=== PATIENT | female | born 1965 | race African-American/Black ===

== ENCOUNTER 2024-03-16 13:13 | Inpatient (IN) | payer OTHER, SELFPAY ==
[2024-03-16 13:42] LABS: #Basophils 0.05 10x3/uL (0.0-0.2); %Basophils 0.6 % (0.0-1.0); %Eosinophils 3.1 % (0.0-10.0); %Monocytes 7.2 % (0.0-10.0); %Neutrophils 59.9 % (42.0-75.0); Hematocrit 41.1 % (36.0-47.0); Mean Corpuscular HGB CONC 31.6 g/dL (32.0-36.0); Mean Corpuscular Hemoglobin 25.6 pg (27.0-31.0); Mean Corpuscular Volume 81.1 fL (78.0-98.0); Mean Platelet Volume 12.9 fL (7.4-10.4); Platelet Count 230 10x3/uL (130-400); RBC Distribution Width 14.6 % (11.5-14.5); Red Blood Cell (RBC) Count 5.07 mill/uL (4.20-5.40)
[2024-03-16 13:56] LABS: Lipase 10 U/L (8-78); Magnesium 1.4 mg/dL (1.6-2.6)
[2024-03-16 13:57] LABS: Acetaminophen Less than 10 mcg/mL (Less than 10); Alcohol Less than 10.0 mg/dL (Less than 10); Salicylate Less than 8.0 mg/dL (Less than 8.0)
[2024-03-16 14:03] LABS: PTT 25.5 sec (22.9-36.1); Prothrombin Time 13.2 sec (12.0-14.7)
[2024-03-16 14:05] LABS: Troponin I 0.031 ng/mL (< 0.028)
[2024-03-16 14:08] LABS: ALT (SGPT) 7 U/L (8-55); AST (SGOT) 13 U/L (5-34); Albumin 3.6 g/dL (3.5-5.0); Alkaline Phosphatase 97 U/L (40-110); Anion Gap 19 mmol/L (10-20); BUN (Urea Nitrogen) 7 mg/dL (9.8-20.1); Bilirubin, Total 0.4 mg/dL (0.2-1.2); Calc. Creatinine Clearance 0 mL/min (70-130); Calcium 9.4 mg/dL (7.8-10.44); Carbon Dioxide 22 mmol/L (22-29); Chloride 103 mmol/L (98-107); Estimated GFR 49; Globulin 4.7 g/dL (2.4-3.5); Glucose 252 mg/dL (70-105); Potassium 3.6 mmol/L (3.5-5.1); Protein, Total 8.3 g/dL (6.0-8.3); Sodium 140 mmol/L (136-145)
[2024-03-16] MEDS ORDERED: Aspirin Chewable 81 MG TAB ONE (14:19)
[2024-03-16] MEDS ORDERED: niCARdipine 25 MG/10 ML SDV ONE (14:19)
[2024-03-16] MEDS ORDERED: traMADol HCl 50 MG TAB PO PRN (14:53)
[2024-03-16] MEDS ORDERED: Acetaminophen 325 MG TAB PO PRN (14:53)
[2024-03-16] MEDS ORDERED: Electrolyte Replacement Protocol 1 EACH FS SCH (14:58)
[2024-03-16] MEDS ORDERED: niCARdipine 25 MG in Sodium Chloride 0.9% 250 ML 250 ML IVPB SCH (15:00)
[2024-03-16 16:59] VITALS: BMI 35.6
[2024-03-16] MEDS: niCARdipine 25 MG in Sodium Chloride 0.9% 250 ML 250 ML IVPB SCH (17:03)
[2024-03-16] MEDS: Lisinopril 20 MG TAB PO SCH (17:22)
[2024-03-16] MEDS: Magnesium Sulfate In Water 4 GM in Premix 1 BAG IVPB SCH (18:15)
[2024-03-16 19:28] LABS: Hemoglobin A1c 8.9 % (4.0-6.0)
[2024-03-16 19:37] LABS: Troponin I 0.026 ng/mL (< 0.028)
[2024-03-16] MEDS: Famotidine 20 MG TAB PO SCH (20:38)
[2024-03-16 23:26] LABS: Troponin I 0.021 ng/mL (< 0.028)
[2024-03-17 05:42] LABS: #Basophils Less than 0.03 10x3/uL (0.0-0.2); %Basophils 0.3 % (0.0-1.0); %Eosinophils 2.8 % (0.0-10.0); %Lymphocytes 26.4 % (21.0-51.0); %Monocytes 7.3 % (0.0-10.0); %Neutrophils 62.9 % (42.0-75.0); Hematocrit 35.8 % (36.0-47.0); Hemoglobin 11.4 g/dL (12.0-16.0); Mean Corpuscular HGB CONC 31.8 g/dL (32.0-36.0); Mean Corpuscular Hemoglobin 25.4 pg (27.0-31.0); Mean Corpuscular Volume 79.9 fL (78.0-98.0); Mean Platelet Volume 13.5 fL (7.4-10.4); Platelet Count 205 10x3/uL (130-400); RBC Distribution Width 14.6 % (11.5-14.5); Red Blood Cell (RBC) Count 4.48 mill/uL (4.20-5.40)
[2024-03-17 05:57] LABS: Anion Gap 14 mmol/L (10-20); BUN (Urea Nitrogen) 10 mg/dL (9.8-20.1); Calc. Creatinine Clearance 73 mL/min (70-130); Calcium 8.8 mg/dL (7.8-10.44); Carbon Dioxide 25 mmol/L (22-29); Chloride 107 mmol/L (98-107); Estimated GFR 47; Glucose 222 mg/dL (70-105); Potassium 3.3 mmol/L (3.5-5.1); Sodium 143 mmol/L (136-145)
[2024-03-17] MEDS: Potassium Chloride 20 MEQ TAB PO SCH (07:55)
[2024-03-17] MEDS: Lisinopril 20 MG TAB PO SCH (07:55)
[2024-03-17] MEDS: Enoxaparin 40 MG (0.4 mL) SYRINGE SC SCH (07:55)
[2024-03-17] MEDS ORDERED: Electrolyte Replacement Protocol FS PRN (08:00)
[2024-03-17] MEDS ORDERED: Dextrose 50% Abboject 50 ML SYRINGE SLOW IVP PRN (08:42)
[2024-03-17] MEDS ORDERED: HumaLOG 300 UNITS/3 ML VIAL SC PRN (08:42)
[2024-03-17] MEDS ORDERED: Dextrose 5% in Water 1,000 ML IV PRN (08:42)
[2024-03-17] MEDS ORDERED: Glucagon 1 MG/ML KIT IM PRN (08:42)
[2024-03-17] MEDS: Amlodipine 10 MG TAB PO SCH (11:28)
[2024-03-17] MEDS: Divalproex Sodium 250 MG (DR) TAB PO SCH (11:28)
[2024-03-17] MEDS: Insulin Lispro 100 UNIT/ML 10 ML VIAL SC PRN (13:16)
[2024-03-17] MEDS: Aspirin 81 mg Enteric Coated Tablet PO SCH (14:38)
[2024-03-17] MEDS: Carvedilol 25 MG TAB PO SCH (15:26)
[2024-03-17] MEDS: Chlorthalidone 25 MG TAB PO SCH (15:26)
[2024-03-17] MEDS: Atorvastatin Calcium 40 MG TAB PO SCH (20:48)
[2024-03-18 05:23] LABS: Hematocrit 36.5 % (36.0-47.0); Hemoglobin 11.2 g/dL (12.0-16.0); Mean Corpuscular HGB CONC 30.7 g/dL (32.0-36.0); Mean Corpuscular Hemoglobin 24.9 pg (27.0-31.0); Mean Corpuscular Volume 81.3 fL (78.0-98.0); Mean Platelet Volume 12.7 fL (7.4-10.4); Platelet Count 200 10x3/uL (130-400); Red Blood Cell (RBC) Count 4.49 mill/uL (4.20-5.40)
[2024-03-18 05:50] LABS: Anion Gap 14 mmol/L (10-20); BUN (Urea Nitrogen) 10 mg/dL (9.8-20.1); Calc. Creatinine Clearance 78 mL/min (70-130); Calcium 8.9 mg/dL (7.8-10.44); Carbon Dioxide 23 mmol/L (22-29); Cardiac Risk 3.9 (Less than 4.5); Chloride 110 mmol/L (98-107); Cholesterol 175 mg/dl (< 200 Desired); Estimated GFR 50; Glucose 176 mg/dL (70-105); HDL Cholesterol 45 mg/dL (>60 Neg Risk); LDL Cholesterol, Calculated 108 mg/dL; Potassium 3.8 mmol/L (3.5-5.1); Sodium 143 mmol/L (136-145); Triglycerides 109 mg/dL (Less than 150)
[2024-03-18] MEDS: Amlodipine 10 MG TAB PO SCH (07:20)
[2024-03-18] MEDS: Divalproex Sodium 250 MG (DR) TAB PO SCH (07:23)
[2024-03-18] MEDS: Aspirin 81 mg Enteric Coated Tablet PO SCH (07:24)
[2024-03-18] MEDS: Carvedilol 25 MG TAB PO SCH (07:24)
[2024-03-18] MEDS: Chlorthalidone 25 MG TAB PO SCH (07:25)
[2024-03-19 03:44] LABS: Hematocrit 37.3 % (36.0-47.0); Hemoglobin 11.8 g/dL (12.0-16.0); Mean Corpuscular HGB CONC 31.6 g/dL (32.0-36.0); Mean Corpuscular Hemoglobin 25.5 pg (27.0-31.0); Mean Corpuscular Volume 80.6 fL (78.0-98.0); Mean Platelet Volume 12.9 fL (7.4-10.4); Platelet Count 225 10x3/uL (130-400); RBC Distribution Width 14.7 % (11.5-14.5); Red Blood Cell (RBC) Count 4.63 mill/uL (4.20-5.40)
[2024-03-19 04:18] LABS: Anion Gap 16 mmol/L (10-20); BUN (Urea Nitrogen) 17 mg/dL (9.8-20.1); Calc. Creatinine Clearance 74 mL/min (70-130); Calcium 9.6 mg/dL (7.8-10.44); Carbon Dioxide 26 mmol/L (22-29); Chloride 106 mmol/L (98-107); Estimated GFR 47; Glucose 178 mg/dL (70-105); Magnesium 1.8 mg/dL (1.6-2.6); Potassium 3.9 mmol/L (3.5-5.1); Sodium 144 mmol/L (136-145)
[2024-03-19] MEDS ORDERED: hydrALAZINE 10 MG TAB PO PRN (17:19)
[2024-03-20] MEDS ORDERED: PROPOFOL 20 ML ONE ×2 (07:24)
[2024-03-21] MEDS ORDERED: Lidocaine 1% w/Epinephrine 1:100K 20 ML VIAL ONE (08:51)
[2024-03-21 13:25] VITALS: BP 135/85; TEMP 98.2
== END 2024-03-21 13:50 | disposition home or self-care (01) | DRG 41 ==
LOC: ERS 13:13 → CCU 14:35 → 2SE 03-18 13:12
PROVIDERS: ADMIT Internal Medicine; ATTEND Internal Medicine
PROC: B24BZZ4 Ultrasonography of Heart with Aorta, Transesophageal (ICD-10-PCS; 2024-03-20)
PROC: 0JH602Z Insertion of Monitoring Device into Chest Subcutaneous Tissue and Fascia, Open Approach (ICD-10-PCS; principal; 2024-03-21)
DX: I63.9 Cerebral infarction, unspecified (principal); I16.1 Hypertensive emergency; N17.9 Acute kidney failure, unspecified; F41.9 Anxiety disorder, unspecified; F31.9 Bipolar disorder, unspecified; E83.42 Hypomagnesemia; R20.2 Paresthesia of skin; E78.00 Pure hypercholesterolemia, unspecified; E03.9 Hypothyroidism, unspecified; G89.29 Other chronic pain; M54.9 Dorsalgia, unspecified; E11.65 Type 2 diabetes mellitus with hyperglycemia; E87.6 Hypokalemia; I12.9 Hypertensive chronic kidney disease with stage 1 through stage 4 chronic kidney disease, or unspecified chronic kidney disease; N18.30 Chronic kidney disease, stage 3 unspecified; E11.22 Type 2 diabetes mellitus with diabetic chronic kidney disease; Z98.51 Tubal ligation status; Z91.041 Radiographic dye allergy status; Z91.148 Patient's other noncompliance with medication regimen for other reason
CPT/HCPCS: 33285; 36415; 36416; 70450; 70551; 71045; 80048; 80053; 80061; 80307; 83036; 83690; 83735; 83880; 84443; 84484; 85025; 85027; 85610; 85730; 93005; 93010; 93306; 93312; 93880; 96374; C1764; J1650; J1815; J2704; J3475; J7050

== ENCOUNTER 2024-06-22 16:12 | Emergency (ER) | payer OTHER ==
[2024-06-22 16:57] LABS: #Basophils 0.03 10x3/uL (0.0-0.2); %Basophils 0.4 % (0.0-1.0); %Eosinophils 2.2 % (0.0-10.0); %Lymphocytes 29.9 % (21.0-51.0); %Monocytes 6.5 % (0.0-10.0); %Neutrophils 60.6 % (42.0-75.0); Hemoglobin 11.6 g/dL (12.0-16.0); Mean Corpuscular HGB CONC 31.4 g/dL (32.0-36.0); Mean Corpuscular Volume 79.7 fL (78.0-98.0); Platelet Count 229 10x3/uL (130-400); RBC Distribution Width 14.8 % (11.5-14.5); Red Blood Cell (RBC) Count 4.64 mill/uL (4.20-5.40)
[2024-06-22 17:23] LABS: ALT (SGPT) 9 U/L (Less than 34); AST (SGOT) 19 U/L (11-34); Albumin 3.4 g/dL (3.1-4.5); Alkaline Phosphatase 108 U/L (40-110); Anion Gap 14 mmol/L (10-20); BUN (Urea Nitrogen) 12 mg/dL (9.8-20.1); Bilirubin, Total 0.3 mg/dL (0.3-1.2); Calc. Creatinine Clearance 0 mL/min (70-130); Calcium 9.3 mg/dL (7.8-10.44); Carbon Dioxide 25 mmol/L (22-29); Chloride 105 mmol/L (98-107); Estimated GFR 51; Globulin 4.7 g/dL (2.4-3.5); Glucose 161 mg/dL (70-105); Potassium 3.4 mmol/L (3.5-5.1); Protein, Total 8.1 g/dL (6.0-8.3); Sodium 141 mmol/L (136-145)
[2024-06-22] MEDS ORDERED: Nitroglycerin 2% Ointment 1 INCH/1 GM Packet ONE (17:23)
[2024-06-22 17:27] LABS: Troponin I 0.025 ng/mL (< 0.028)
== END 2024-06-22 19:35 | disposition home or self-care (01) ==
LOC: ERS 16:12
DX: R20.2 Paresthesia of skin (principal); I10 Essential (primary) hypertension; R07.9 Chest pain, unspecified; E11.9 Type 2 diabetes mellitus without complications; Z79.84 Long term (current) use of oral hypoglycemic drugs; Z86.73 Personal history of transient ischemic attack (TIA), and cerebral infarction without residual deficits; Z79.899 Other long term (current) drug therapy
CPT/HCPCS: 70450; 71045; 80053; 83880; 84484; 85025; 93005; 93010

== ENCOUNTER 2024-12-12 13:18 | Inpatient (IN) | payer OTHER ==
[2024-12-12] MEDS ORDERED: cloNIDine 0.1 MG TAB ONE (15:34)
[2024-12-12 15:44] LABS: #Basophils Less than 0.03 10x3/uL (0.0-0.2); #Eosinophils 0.12 10x3/uL (0.0-0.7); #Monocytes 0.54 10x3/uL (0.11-0.59); #Neutrophils 3.65 10x3/uL (1.40-6.50); %Basophils 0.3 % (0.0-1.0); %Eosinophils 1.8 % (0.0-10.0); %Lymphocytes 36.5 % (21.0-51.0); %Monocytes 7.9 % (0.0-10.0); %Neutrophils 53.4 % (42.0-75.0); Hematocrit 38.2 % (36.0-47.0); Hemoglobin 11.8 g/dL (12.0-16.0); Mean Corpuscular Hemoglobin 24.8 pg (27.0-31.0); Mean Corpuscular Volume 80.4 fL (78.0-98.0); Platelet Count 187 10x3/uL (130-400); Red Blood Cell (RBC) Count 4.75 mill/uL (4.20-5.40); White Blood Cell (WBC) Count 6.83 10x3/uL (4.8-10.8)
[2024-12-12 15:48] LABS: ALT (SGPT) Less than 7 U/L (Less than 34); AST (SGOT) 11 U/L (11-34); Albumin 3.8 g/dL (3.1-4.5); Alkaline Phosphatase 110 U/L (40-110); Anion Gap 16 mmol/L (10-20); BUN (Urea Nitrogen) 9 mg/dL (9.8-20.1); Bilirubin, Total 0.4 mg/dL (0.3-1.2); Calc. Creatinine Clearance 0 mL/min (70-130); Calcium 8.9 mg/dL (7.8-10.44); Carbon Dioxide 22 mmol/L (23-31); Chloride 108 mmol/L (98-107); Globulin 4.5 g/dL (2.4-3.5); Glucose 140 mg/dL (80-115); Potassium 3.1 mmol/L (3.5-5.1); Sodium 143 mmol/L (136-145)
[2024-12-12] MEDS ORDERED: Droperidol 5 MG/2 ML VIAL ONE (16:23)
[2024-12-12] MEDS ORDERED: hydrALAZINE 20 MG/ML VIAL ONE (16:23)
[2024-12-12] MEDS ORDERED: Dextrose 50% Abboject 50 ML SYRINGE SLOW IVP PRN (18:14)
[2024-12-12] MEDS ORDERED: Melatonin 3 MG TAB PO PRN (18:14)
[2024-12-12] MEDS ORDERED: Acetaminophen 325 MG TAB PO PRN (18:14)
[2024-12-12] MEDS ORDERED: Nitroglycerin 0.4 MG TAB (25 Tab Bottle) SL PRN (18:14)
[2024-12-12] MEDS ORDERED: Glucagon 1 MG/ML KIT IM PRN (18:14)
[2024-12-12] MEDS ORDERED: Ondansetron PF 4 MG/2 ML Vial IVP PRN (18:14)
[2024-12-12] MEDS ORDERED: hydrALAZINE 20 MG/ML VIAL SLOW IVP PRN (18:39)
[2024-12-12] MEDS: Carvedilol 25 MG TAB PO SCH (20:54)
[2024-12-12] MEDS: Famotidine/PF 20 mg/2ml Vial SLOW IVP SCH (20:55)
[2024-12-13 03:23] LABS: #Basophils 0.04 10x3/uL (0.0-0.2); #Eosinophils 0.13 10x3/uL (0.0-0.7); #Monocytes 0.57 10x3/uL (0.11-0.59); #Neutrophils 4.40 10x3/uL (1.40-6.50); %Basophils 0.5 % (0.0-1.0); %Eosinophils 1.8 % (0.0-10.0); %Lymphocytes 29.8 % (21.0-51.0); %Monocytes 7.8 % (0.0-10.0); %Neutrophils 60.0 % (42.0-75.0); Hematocrit 34.4 % (36.0-47.0); Hemoglobin 10.6 g/dL (12.0-16.0); Mean Corpuscular Hemoglobin 24.8 pg (27.0-31.0); Mean Corpuscular Volume 80.4 fL (78.0-98.0); Platelet Count 176 10x3/uL (130-400); Red Blood Cell (RBC) Count 4.28 mill/uL (4.20-5.40); White Blood Cell (WBC) Count 7.34 10x3/uL (4.8-10.8)
[2024-12-13 03:57] LABS: Anion Gap 14 mmol/L (10-20); BUN (Urea Nitrogen) 11 mg/dL (9.8-20.1); Calc. Creatinine Clearance 0 mL/min (70-130); Calcium 8.7 mg/dL (7.8-10.44); Carbon Dioxide 23 mmol/L (23-31); Chloride 110 mmol/L (98-107); Glucose 171 mg/dL (80-115); Potassium 3.3 mmol/L (3.5-5.1); Sodium 144 mmol/L (136-145)
[2024-12-13 07:06] VITALS: BMI 34.7
[2024-12-13] MEDS: Lisinopril 20 MG TAB PO SCH (10:03)
[2024-12-13] MEDS: Enoxaparin 40 MG (0.4 mL) SYRINGE SC SCH (10:03)
[2024-12-13] MEDS: Divalproex Sodium 250 MG DR.TAB PO SCH (10:03)
[2024-12-13] MEDS: Aspirin Chewable 81 MG TAB PO SCH (10:03)
[2024-12-13] MEDS: Spironolactone 25 MG TAB PO SCH (10:04)
[2024-12-13] MEDS: Chlorthalidone 25 MG TAB PO SCH (10:04)
[2024-12-13 12:27] VITALS: BP 155/86; TEMP 97.8
[2024-12-13] MEDS: metFORMIN 500 MG TAB PO SCH (12:53)
== END 2024-12-13 16:59 | disposition home or self-care (01) | DRG 305 ==
LOC: ERS 13:18 → OBS 17:32 → OBSVTOIN 17:33
PROVIDERS: ADMIT Internal Medicine; ATTEND Internal Medicine
DX: I16.0 Hypertensive urgency (principal); E03.9 Hypothyroidism, unspecified; N18.30 Chronic kidney disease, stage 3 unspecified; I12.9 Hypertensive chronic kidney disease with stage 1 through stage 4 chronic kidney disease, or unspecified chronic kidney disease; E11.22 Type 2 diabetes mellitus with diabetic chronic kidney disease; F32.A Depression, unspecified; E78.00 Pure hypercholesterolemia, unspecified; F41.9 Anxiety disorder, unspecified; Z95.0 Presence of cardiac pacemaker; Z86.73 Personal history of transient ischemic attack (TIA), and cerebral infarction without residual deficits; Z82.49 Family history of ischemic heart disease and other diseases of the circulatory system; Z83.3 Family history of diabetes mellitus; Z91.09 Other allergy status, other than to drugs and biological substances
CPT/HCPCS: 36415; 36416; 71045; 78452; 80048; 80053; 83880; 84484; 85025; 93005; 93017; 94760; 96374; 96375; A9502; J0360; J1308; J1650; J1790; J2785

== ENCOUNTER 2025-03-07 09:07 | Emergency (ER) | payer OTHER ==
[2025-03-07] MEDS ORDERED: hydrALAZINE 20 MG/ML VIAL ONE (09:31)
[2025-03-07] MEDS ORDERED: Ketorolac Tromethamine 30 MG (1 mL) VIAL ONE (09:32)
[2025-03-07 09:58] LABS: ALT (SGPT) Less than 7 U/L (Less than 34); AST (SGOT) 21 U/L (11-34); Albumin 3.4 g/dL (3.1-4.5); Alkaline Phosphatase 121 U/L (40-110); Anion Gap 19 mmol/L (10-20); BUN (Urea Nitrogen) 11 mg/dL (9.8-20.1); Bilirubin, Total 0.4 mg/dL (0.3-1.2); Calc. Creatinine Clearance 0 mL/min (70-130); Calcium 9.0 mg/dL (7.8-10.44); Carbon Dioxide 14 mmol/L (23-31); Chloride 110 mmol/L (98-107); Globulin 4.6 g/dL (2.4-3.5); Glucose 197 mg/dL (80-115); Potassium 4.7 mmol/L (3.5-5.1); Sodium 138 mmol/L (136-145)
[2025-03-07 10:03] LABS: #Basophils 0.04 10x3/uL (0.0-0.2); #Eosinophils 0.22 10x3/uL (0.0-0.7); #Monocytes 0.42 10x3/uL (0.11-0.59); #Neutrophils 3.78 10x3/uL (1.40-6.50); %Basophils 0.6 % (0.0-1.0); %Eosinophils 3.2 % (0.0-10.0); %Lymphocytes 33.9 % (21.0-51.0); %Monocytes 6.2 % (0.0-10.0); %Neutrophils 55.8 % (42.0-75.0); Hematocrit 38.6 % (36.0-47.0); Hemoglobin 12.1 g/dL (12.0-16.0); Mean Corpuscular Hemoglobin 24.7 pg (27.0-31.0); Mean Corpuscular Volume 81.1 fL (78.0-98.0); Platelet Count 233 10x3/uL (130-400); Red Blood Cell (RBC) Count 4.86 mill/uL (4.20-5.40); White Blood Cell (WBC) Count 6.78 10x3/uL (4.8-10.8)
[2025-03-07] MEDS ORDERED: Gabapentin 300 MG CAP ONE (11:19)
== END 2025-03-07 14:00 | disposition home or self-care (01) ==
LOC: ERS 09:07
DX: M54.9 Dorsalgia, unspecified (principal); I10 Essential (primary) hypertension; E11.9 Type 2 diabetes mellitus without complications; Z86.73 Personal history of transient ischemic attack (TIA), and cerebral infarction without residual deficits
CPT/HCPCS: 36415; 80053; 84484; 85025; 93005; 96374; 96375; J0360; J1885